=== PATIENT | male | born 1980 | race African-American/Black ===

== ENCOUNTER 2022-09-21 02:34 | Emergency (ER) | payer SELFPAY ==
[2022-09-21 02:42] VITALS: BP 154/101; PULSE 81; RESP 14; TEMP 36.2; O2SAT 100
--- NOTE | 2022-09-21 03:01 | ED.GENADULT ---
HPI - General Adult General Chief complaint: Dental/Oral Stated complaint: tooth pain/headache Time Seen by Provider: 09/21/22 02:53 History of Present Illness HPI narrative: Patient 42-year-old gentleman who presents emerged from with chief complaint of dental pain. Patient reports that in his mandible area at the incisor and canine he is having some discomfort. Patient reports development of bleeding from the gums reports that he has called the dentist and actually has an appointment scheduled for noon later today. Patient reports that he had no fevers denies trismus patient denies. Drainage Related Data Allergies Allergy/AdvReac Type Severity Reaction Status Date / Time No Known Allergies Allergy Verified 09/21/22 02:42 Review of Systems Review of Systems: A 10 system review of systems was completed on the patient and is negative except for what is stated in the HPI. Nursing and ancillary documentation was reviewed. Exam Narrative: GENERAL: Well-appearing, well-nourished, and in no acute distress. HEAD: Normocephalic, atraumatic. EYES: PERRLA and EOMI. ENT: Nares clear, no rhinorrhea or epistaxis. Mucous membranes moist. NECK: Supple. CHEST: Clear to auscultation. No respiratory distress. HEART: Regular rate and rhythm. No murmur heard. Normal peripheral pulses. ABDOMEN: Soft, nontender, nondistended, normal active bowel sounds. EXTREMITIES: Normal range of motion. No edema. SKIN: Warm, dry, no rash. NEURO: No focal deficits. Alert and oriented x3. PSYCH: Normal mood and affect. Course Vital Signs Vital signs: Vital Signs Temperature 36.2 C L 09/21/22 02:42 Pulse Rate 81 09/21/22 02:42 Respiratory Rate 14 09/21/22 02:42 Blood Pressure 154/101 H 09/21/22 02:42 Pulse Oximetry 100 09/21/22 02:42 Oxygen Delivery Room Air 09/21/22 02:42 Temperature 36.2 C L 09/21/22 02:42 Pulse Rate 81 09/21/22 02:42 Respiratory Rate 14 09/21/22 02:42 Blood Pressure 154/101 H 09/21/22 02:42 Pulse Oximetry 100 09/21/22 02:42 Oxygen Delivery Room Air 09/21/22 02:42 Medical Decision Making MDM Narrative Medical decision making narrative: Differential diagnosis: Dental abscess, dental caries, odontalgia, Patient received a dose of AMOXICILLIN in the emergency department and received a dose of [place] in the ER Vital Signs Vital Signs: Vital Signs Temperature 36.2 C L 09/21/22 02:42 Pulse Rate 81 09/21/22 02:42 Respiratory Rate 14 09/21/22 02:42 Blood Pressure 154/101 H 09/21/22 02:42 Pulse Oximetry 100 09/21/22 02:42 Oxygen Delivery Room Air 09/21/22 02:42 Temperature 36.2 C L 09/21/22 02:42 Pulse Rate 81 09/21/22 02:42 Respiratory Rate 14 09/21/22 02:42 Blood Pressure 154/101 H 09/21/22 02:42 Pulse Oximetry 100 09/21/22 02:42 Oxygen Delivery Room Air 09/21/22 02:42 Discharge Plan Discharge Clinical Impression: Toothache, Dental abscess Patient Disposition: Home, Self-Care Condition: Stable Instructions: Antibiotic Form, Dental Abscess (ED), Toothache (ED) Prescriptions: New amoxicillin 500 mg capsule 500 mg PO Q12H Qty: 20 0RF Follow-up/Referrals: Norah Apodaca DO [Physician] - PHYSICIAN NOT ON STAFF,NONSTAFF [Primary Care Provider] - Time of Disposition: 03:04
[2022-09-21] MEDS: AMOXICILLIN 500 MG CAPSULE PO (03:07)
[2022-09-21] MEDS: HYDROcodone/acetaminophen (*CRX) 5-325 MG TABLET 2 TAB PO (03:07)
== END 2022-09-21 03:11 | disposition home or self-care (01) ==
LOC: ANHED 03:04
PROVIDERS: Emergency Provider Emergency Medicine
DX: K04.7 Periapical abscess without sinus (principal)
CPT/HCPCS: 99283; A9270